=== PATIENT | male | born 1970 | race Caucasian/White ===

== ENCOUNTER → 2022-10-20 | Outpatient (CLI) | payer BC ==
--- NOTE | 2022-10-20 17:58 | CT ---
EXAMINATION TYPE: CT brain w con CT DLP: 1176.8 mGycm, Automated exposure control for dose reduction was used. DATE OF EXAM: 10/20/2022 5:47 PM COMPARISON: None. CLINICAL INDICATION:Male, 51 years old with history of G43.909 MIGRAINE; PHH, Constant migraine/heada viktor x1mo on left side of head. Ocular pain. TECHNIQUE: Axial CT images of the brain were obtained with coronal and sagittal reformats created and reviewed. Contrast used:100cc mL of Isovue 300 with IV Contrast, Oral contrast used: none. FINDINGS: Extra-axial spaces: No abnormal extra-axial fluid collections. Ventricular system: Within normal limits Cerebral parenchyma: No acute intraparenchymal hemorrhage or mass effect. The henderson-white junction is well differentiated. No abnormal enhancement is seen after the administration of intravenous contras t. Cerebellum: Unremarkable. Mass effect: No evidence of midline shift. Intracranial vasculature: unremarkable Soft tissues: Normal. Calvarium/osseous structures: No depressed skull fracture. Paranasal sinuses and mastoid air cells: Clear. Visualized orbits: Orbital contents are intact. The orbits appear symmetrical. The intraconal next, f at is preserved. IMPRESSION: 1. No acute intracranial process and no evidence to suggest intracranial mass. 2. No evidence for intracranial aneurysm.
== END | disposition home or self-care (01) ==
LOC: RADCTMAIN 17:07
PROVIDERS: ATTEND Family Medicine
DX: G43.909 Migraine, unspecified, not intractable, without status migrainosus (principal)
CPT/HCPCS: 70460; Q9967